=== PATIENT | male | born 1935 | race Caucasian/White ===

== ENCOUNTER → 2017-03-07 10:08 | Outpatient (CLI) | payer OTHER ==
[~2017-03-07 10:08] MED LIST: COZAAR25 MG PO; GLIPIZIDE10 MG PO; GLUCOTROL10 MG PO; KEPPRA250 MG PO
== END | disposition home or self-care (01) ==
LOC: LAB 10:08
DX: E11.9 Type 2 diabetes mellitus without complications (principal); I11.9 Hypertensive heart disease without heart failure; R00.2 Palpitations; E78.2 Mixed hyperlipidemia; D64.89 Other specified anemias; N30.91 Cystitis, unspecified with hematuria; E55.9 Vitamin D deficiency, unspecified; R73.09 Other abnormal glucose; E11.29 Type 2 diabetes mellitus with other diabetic kidney complication; N30.90 Cystitis, unspecified without hematuria; E03.8 Other specified hypothyroidism

== ENCOUNTER → 2017-03-10 | Outpatient (CLI) | payer OTHER | END | disposition home or self-care (01) | LOC: LAB 11:40 | DX: E11.9 Type 2 diabetes mellitus without complications (principal); I11.9 Hypertensive heart disease without heart failure; R00.2 Palpitations; E78.2 Mixed hyperlipidemia; D64.89 Other specified anemias; N30.91 Cystitis, unspecified with hematuria; E55.9 Vitamin D deficiency, unspecified; E11.29 Type 2 diabetes mellitus with other diabetic kidney complication; N30.90 Cystitis, unspecified without hematuria; E03.8 Other specified hypothyroidism; Z12.11 Encounter for screening for malignant neoplasm of colon ==

== ENCOUNTER → 2017-06-21 | Outpatient (CLI) | payer OTHER | END | disposition home or self-care (01) | LOC: RAD 13:02 | DX: M79.672 Pain in left foot (principal) ==

== ENCOUNTER → 2017-07-26 09:29 | Outpatient (CLI) | payer OTHER | END | disposition home or self-care (01) | LOC: LAB 09:29 | DX: I11.9 Hypertensive heart disease without heart failure (principal); R00.2 Palpitations; E78.2 Mixed hyperlipidemia; E11.9 Type 2 diabetes mellitus without complications; E11.29 Type 2 diabetes mellitus with other diabetic kidney complication ==

== ENCOUNTER 2017-11-02 16:05 | Outpatient (CLI) | payer OTHER | END 2017-11-02 16:30 | disposition home or self-care (01) | LOC: RAD 16:05 | DX: M25.552 Pain in left hip (principal); M25.551 Pain in right hip ==

== ENCOUNTER 2017-11-23 12:06 | Outpatient (CLI) | payer OTHER | END 2017-11-23 12:10 | disposition home or self-care (01) | LOC: SONOGRAMA 12:06 | DX: S76.811A Strain of other specified muscles, fascia and tendons at thigh level, right thigh, initial encounter (principal) ==

== ENCOUNTER → 2017-12-14 10:00 | Outpatient (CLI) | payer OTHER ==
[~2017-12-14 10:00] MED LIST changes: +ELIQUIS2.5 MG PO; +ZOCOR20 MG PO; +[UNRECOGNIZED DRUG - OTHER]
== END | disposition home or self-care (01) ==
LOC: LAB 10:00
DX: Z01.812 Encounter for preprocedural laboratory examination (principal); K40.90 Unilateral inguinal hernia, without obstruction or gangrene, not specified as recurrent; D64.89 Other specified anemias; E11.29 Type 2 diabetes mellitus with other diabetic kidney complication; E78.2 Mixed hyperlipidemia; N40.0 Benign prostatic hyperplasia without lower urinary tract symptoms; N39.0 Urinary tract infection, site not specified; D68.8 Other specified coagulation defects

== ENCOUNTER 2018-01-03 05:35 | Day surgery (SDC) | payer OTHER | END 2018-01-03 15:35 | disposition home or self-care (01) | LOC: CIR.AMB 05:35 | DX: K40.90 Unilateral inguinal hernia, without obstruction or gangrene, not specified as recurrent (principal) ==

== ENCOUNTER 2018-06-13 08:42 | Outpatient (CLI) | payer OTHER | END 2018-06-13 09:43 | disposition home or self-care (01) | LOC: LAB 08:42 | DX: K40.90 Unilateral inguinal hernia, without obstruction or gangrene, not specified as recurrent (principal); I10 Essential (primary) hypertension; I48.91 Unspecified atrial fibrillation; Z01.812 Encounter for preprocedural laboratory examination ==

== ENCOUNTER 2018-06-29 05:43 | Day surgery (SDC) | payer OTHER | END 2018-06-29 18:00 | disposition home or self-care (01) | LOC: CIR.AMB 05:43 | DX: K40.90 Unilateral inguinal hernia, without obstruction or gangrene, not specified as recurrent (principal) ==

== ENCOUNTER 2018-08-08 08:52 | Outpatient (CLI) | payer OTHER | END 2018-08-08 08:59 | disposition home or self-care (01) | LOC: LAB 08:52 | DX: N18.9 Chronic kidney disease, unspecified (principal); D64.89 Other specified anemias; E11.29 Type 2 diabetes mellitus with other diabetic kidney complication; E78.2 Mixed hyperlipidemia; E03.8 Other specified hypothyroidism; N39.0 Urinary tract infection, site not specified ==

== ENCOUNTER 2018-09-20 16:05 | Outpatient (CLI) | payer OTHER | END 2018-09-20 17:20 | disposition home or self-care (01) | LOC: RAD 16:05 | DX: M19.90 Unspecified osteoarthritis, unspecified site (principal); M25.562 Pain in left knee; M25.561 Pain in right knee; M54.5 Low back pain ==

== ENCOUNTER → 2018-10-09 | Outpatient (CLI) | payer OTHER | END | disposition home or self-care (01) | LOC: MAMO-SONO 11:15 → RAD 12:01 | DX: M19.90 Unspecified osteoarthritis, unspecified site (principal); M46.47 Discitis, unspecified, lumbosacral region ==

== ENCOUNTER 2018-11-06 09:18 | Outpatient (CLI) | payer OTHER | END 2018-11-06 09:24 | disposition home or self-care (01) | LOC: LAB 09:18 | DX: E11.9 Type 2 diabetes mellitus without complications (principal); I11.9 Hypertensive heart disease without heart failure; R00.2 Palpitations; E78.2 Mixed hyperlipidemia ==

== ENCOUNTER 2019-04-02 09:59 | Outpatient (CLI) | payer OTHER | END 2019-04-02 10:05 | disposition home or self-care (01) | LOC: LAB 09:59 | DX: D64.89 Other specified anemias (principal); E78.2 Mixed hyperlipidemia; E03.8 Other specified hypothyroidism; N39.0 Urinary tract infection, site not specified; Z12.11 Encounter for screening for malignant neoplasm of colon; N40.0 Benign prostatic hyperplasia without lower urinary tract symptoms ==

== ENCOUNTER → 2019-09-12 10:09 | Outpatient (CLI) | payer OTHER | END | disposition home or self-care (01) | LOC: LAB 10:09 | PROVIDERS: ATTEND Internal Medicine | DX: D64.89 Other specified anemias (principal); E11.29 Type 2 diabetes mellitus with other diabetic kidney complication; E03.8 Other specified hypothyroidism; E78.2 Mixed hyperlipidemia; N39.0 Urinary tract infection, site not specified; N40.0 Benign prostatic hyperplasia without lower urinary tract symptoms ==

== ENCOUNTER 2019-11-14 12:30 | Outpatient (CLI) | payer OTHER | END 2019-11-14 12:39 | disposition home or self-care (01) | LOC: SONOGRAMA 12:30 → MAMO-SONO 12:45 | PROVIDERS: ATTEND Physical Medicine & Rehabilitation | DX: M75.102 Unspecified rotator cuff tear or rupture of left shoulder, not specified as traumatic (principal) ==

== ENCOUNTER 2019-11-22 20:34 | Emergency (ER) | payer OTHER ==
[~2019-11-22] VITALS: Ht 172.7 cm; Wt 77.1 kg
[2019-11-22] MEDS ORDERED: ENALAPRIL (20:50)
== END 2019-11-23 | disposition home or self-care (01) ==
LOC: ER 20:34
DX: S01.82XA Laceration with foreign body of other part of head, initial encounter (principal); W18.09XA Striking against other object with subsequent fall, initial encounter; Y93.89 Activity, other specified; Y92.098 Other place in other non-institutional residence as the place of occurrence of the external cause; Y99.8 Other external cause status

== ENCOUNTER 2019-12-02 16:55 | Emergency (ER) | payer OTHER ==
[~2019-12-02] VITALS: Ht 172.7 cm; Wt 77.1 kg
[~2019-12-02 16:55] MED LIST changes: +ENALAPRIL
[2019-12-02] MEDS ORDERED: GABAPENTIN600 MG PO (17:12)
[2019-12-02] MEDS ORDERED: GLIPIZIDE ER5 MG PO (17:13)
[2019-12-02] MEDS ORDERED: KEPPRA750 MG PO (17:14)
== END 2019-12-02 18:05 | disposition home or self-care (01) ==
LOC: ER 16:55
DX: Z48.02 Encounter for removal of sutures (principal)

== ENCOUNTER → 2020-01-04 11:56 | Outpatient (CLI) | payer OTHER ==
[~2020-01-04 11:56] MED LIST changes: +GABAPENTIN600 MG PO; +GLIPIZIDE ER5 MG PO; +KEPPRA750 MG PO
== END | disposition home or self-care (01) ==
LOC: LAB 11:56
PROVIDERS: ATTEND Specialist
DX: N18.9 Chronic kidney disease, unspecified (principal)

== ENCOUNTER 2020-03-12 11:28 | Outpatient (CLI) | payer OTHER | END 2020-03-12 11:33 | disposition home or self-care (01) | LOC: LAB 11:28 | PROVIDERS: ATTEND Internal Medicine | DX: D64.89 Other specified anemias (principal); E11.9 Type 2 diabetes mellitus without complications; E03.8 Other specified hypothyroidism; E78.2 Mixed hyperlipidemia; N39.0 Urinary tract infection, site not specified; N40.0 Benign prostatic hyperplasia without lower urinary tract symptoms; E55.9 Vitamin D deficiency, unspecified ==

== ENCOUNTER 2020-05-19 12:06 | Outpatient (CLI) | payer OTHER | END 2020-05-19 18:00 | disposition home or self-care (01) | LOC: LAB 12:06 | PROVIDERS: ATTEND Internal Medicine | DX: I11.9 Hypertensive heart disease without heart failure (principal); N40.0 Benign prostatic hyperplasia without lower urinary tract symptoms; Z12.11 Encounter for screening for malignant neoplasm of colon; E78.2 Mixed hyperlipidemia ==

== ENCOUNTER 2020-10-14 10:41 | Outpatient (CLI) | payer OTHER | END 2020-10-14 11:00 | disposition home or self-care (01) | LOC: LAB 10:41 | PROVIDERS: ATTEND Internal Medicine | DX: E11.9 Type 2 diabetes mellitus without complications (principal); E78.2 Mixed hyperlipidemia ==

== ENCOUNTER → 2020-12-03 | Outpatient (CLI) | payer OTHER | END | disposition home or self-care (01) | LOC: LAB 11:08 | PROVIDERS: ATTEND Internal Medicine Cardiovascular Disease | DX: I10 Essential (primary) hypertension (principal); E11.9 Type 2 diabetes mellitus without complications; E03.8 Other specified hypothyroidism; E78.2 Mixed hyperlipidemia ==

== ENCOUNTER 2021-03-09 11:04 | Outpatient (CLI) | payer OTHER | END 2021-03-09 11:08 | disposition home or self-care (01) | LOC: LAB 11:04 | PROVIDERS: ATTEND Internal Medicine Hematology & Oncology | DX: D32.0 Benign neoplasm of cerebral meninges (principal) ==